=== PATIENT | female | born 1990 | race Caucasian/White ===

== ENCOUNTER 2017-02-08 04:20 | Inpatient (IN) | payer OTHER ==
--- NOTE | 2017-02-08 04:44 | HP ---
Admitting History and Physical - Admission Chief Complaint: labor pains History of Present Illness: 26 y/o with prior cs for failure to progress, comes with labor pains. States contractions began at 2am. Arrives to labor and delivery with fully dilated. AROM clear and exam is 10/100/0 sta Cat one tracing. 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's, CVA, Dementia, Migraine, Multiple Sclerosis, Peripheral Neuropathy, Parkinson's, Seizure, Syncope, TIA, Vertigo, Other Cardiovascular: No: AFIB, Aneurysm, Aortic Insufficiency, Aortic Stenosis, CAD, CHF, Deep Vein Thrombosis, HTN, Hyperlipdemia, VT, Mitral Insufficiency, Mitral Stenosis, Murmur, Pulmonary Hypertension, Other Pulmonary: No: Asthma, Bronchitis, Cancer, COPD, O2 Dependent, Pneumonia, Previously Intubated, Pulmonary Embolus, Pulmonary Fibrosis, Sleep Apnea, Other Gastrointestinal: No: Ascites, Cancer, Constipation, Crohn's Disease, Diverticulitis, Diverticulosis, Esophageal Varices, Gastritis, GERD, GI Bleed, Hemorrhoids, Hiatal Hernia, Inflamatory Bowel Disease, Irritable Bowel Disease, Pancreatitis, Peptic Ulcer Disease, Ulcerative Colitis, Other Hepatobiliary: No: Cirrhosis, Cholelithiasis, Cholecystitis, Choledocholithiasis , Hepatitis A, Hepatitis B, Hepatitis C, Other Renal/: No: Renal Failure, Renal Inusuff, BPH, Cancer, Hematuria, Hemodialysis , Neurogenic Bladder, Renal Calculi, UTI, Other Reproductive: No: Ectopic , Endometriosis, Fibroids, PID, Polycystic Ovary Syndrome, Postmenopausal, Other ...LMP: 05/09/16 Heme/Onc: No: Anemia, B12 Deficiency, Bleeding Disorder, Cancer, Current Chemotherapy, Current Radiation Therapy, Hemochromatosis, Hypercoaguable State, Myeloproliferative Synd, Sickle Cell Disease, Sickle Cell Trait, Thrombocytopenia, Other Infectious Disease: No: AIDS, C-Diff, Herpes Zoster, HIV, MRSA, STD's, Tuberculosis, VREF, Other Psych: No: Addictions, Anxiety, Bipolar, Depression, Panic, Psychosis, Schizophrenia, Other Musculoskeletal: No: Bursitis, Chronic low back pain, Hemiparesis, Hemiplegia, Osteoarthritis, Paraplegia, Other Rheumatology: No: Fibromyalgia, Gout, Lupus, Rheumatoid Arthritis, Sarcoidosis, Vasculitis, Other Endocrine: No: [place]'s Disease, Nacho's Disease, Diabetes Insipidus, Diabetes Mellitus, Hyperparathyroidism, Hyperthyroidism, Hypothyroidism, Osteopenia, SIADH, Other Dermatology: No: Basal Cell, Cellulitis, Eczema, Melanoma, Psoriasis, Squamous Cell, Other - Past Surgical History Past Surgical History: No: None, AAA Repair, AICD, Amputation, Appendectomy, Arthrosocopy, AV Fistula/Graft, Bariatric Surgery, Breast Biopsy, Bypass, CABG, Carotid Endarterectomy, Cataract Removal, Cholecystectomy, Colectomy, Colonoscopy, Colostomy, Craniotomy, , Cystectomy, Hernia Repair, Hysterectomy, Ileal Conduit, Ileosotomy, Joint Replacement, Kidney Transplant, Laminectomy, Liver Transplant, Mastectomy, Nephrectomy, Oopherectomy, Orchiectomy, Permanent Pacemaker, Prostatectomy, Splenectomy, Stent, Thoracotomy , TURP, Tonsillectomy, Tubal Ligation, Upper Endoscopy, Valve Replacement, Vasectomy, Vein Stripping/Ligation - Smoking History Smoking history: Never smoked Have you smoked in the past 12 months: No - Alcohol/Substance Use Hx Alcohol Use: No History of Substance Use: denies: None, Cocaine, Heroin, Marijuana, Prescription , Tranquilizers - Social History Usual Living Arrangement: No: Alone, With Spouse, With Parent, With Significant Other, With Child, Assisted Living, [facility], Other Home Medications - Allergies Allergies/Adverse Reactions: Allergies Allergy/AdvReac Type Severity Reaction Status Date / Time No Known Allergies Allergy Verified 06/30/16 20:06 - Home Medications Home Medications: Ambulatory Orders Vitamins (Sjr) - 1 tab PO DAILY 01/04/15 Clotrimazole [Clotrimazole-7] 45 gm VG HS #1 cream.appl 07/01/16 Review of Systems - Review of Systems Constitutional: reports: No Symptoms Eyes: reports: No Symptoms HENT: reports: No Symptoms Neck: reports: No Symptoms Cardiovascular: reports: No Symptoms Respiratory: reports: No Symptoms Gastrointestinal: reports: No Symptoms Genitourinary: reports: No Symptoms Musculoskeletal: reports: No Symptoms Integumentary: reports: No Symptoms Neurological: reports: No Symptoms Endocrine: reports: No Symptoms Hematology/Lymphatic: reports: No Symptoms Psychiatric: reports: No Symptoms Physical Examination Constitutional: Yes: Well Nourished Eyes: Yes: WNL HENT: Yes: WNL Neck: Yes: WNL Cardiovascular: Yes: WNL Respiratory: Yes: WNL Gastrointestinal: Yes: WNL ...Rectal Exam: Yes: WNL Renal/: Yes: WNL Musculoskeletal: Yes: WNL Extremities: Yes: WNL Integumentary: Yes: WNL Neurological: Yes: WNL ...Motor Strength: WNL Psychiatric: Yes: WNL Assessment/Plan as above admit labs expect LOTUS
[2017-02-08] MEDS ORDERED: DEXTROSE 5%-LACTATED RINGERS 1,000 ML IV SCH (04:45)
--- NOTE | 2017-02-08 04:53 | PN ---
Ante-Partal Exam - Subjective Bleeding: No Headache: No Visual changes: No Right upper quadrant pain: No - Contractions Contractions: Yes Regularity: Regular Intensity: Moderate Monitor Mode: External - Exam during Labor Heart Rate: 150 Variability: Moderate Category: I Monitor Accelerations: Present Monitor Decelerations: None Exam: Vaginal Dilatation (cm): 10 Effacement (%): 100 Amniotic Membrane Status: Ruptured Nitrazine Test: Positive Amniotic Fluid: Clear Presentation: Vertex Station: 0 - Assessment/Plan Assessment/Plan: as above starting to push expect
[2017-02-08 05:00] VITALS: BMI 32.0
[2017-02-08 05:04] LABS: BASOPHIL 0.6 % (0-2.0); EOSINOPHIL 0.6 % (0-4.5); MCHC 32.1 g/dl (32.0-36.0); MEAN PLT VOLUME 9.4 fl (7.5-11.1); NEUTROPHILS 74.1 % (42.8-82.8); PLATELET COUNT 261 K/MM3 (134-434); RDW 16.8 % (11.6-15.6); WHITE BLOOD COUNT 9.6 K/mm3 (4.0-10.0)
[2017-02-08 05:17] LABS: INR 0.92 (0.82-1.09); PROTHROMBIN TIME (PATIENT) 10.1 SEC (9.98-11.88)
[2017-02-08 05:20] LABS: ACTIVATED PTT 26.3 SECONDS (26.9-34.4)
[2017-02-08 05:24] LABS: CALCIUM 8.6 mg/dL (8.5-10.1); CREATININE 0.7 mg/dL (0.55-1.02)
[2017-02-08] MEDS ORDERED: BENZOCAINE 28 GM HEMORRHOIDAL OINTMENT TP PRN (06:02)
[2017-02-08] MEDS ORDERED: BENZOCAINE 20% 57 GM BOTTLE TP PRN (06:02)
[2017-02-08] MEDS ORDERED: WITCH HAZEL 50% (TUCKS) 40 PAD/JAR PAD TP PRN (06:02)
[2017-02-08] MEDS ORDERED: BISACODYL 10 MG SUPP.RECT RC PRN (06:02)
[2017-02-08] MEDS ORDERED: METHYLERGONOVINE MALEATE 0.2 MG/1 ML AMP IM PRN (06:02)
[2017-02-08] MEDS: IBUPROFEN 600 MG TABLET (FP) PO PRN ×5 (06:05→23:12)
[2017-02-08] MEDS: ACETAMINOPHEN 325 MG TABLET (FP) PO PRN ×5 (06:05→23:13)
[2017-02-08] MEDS ORDERED: OXYTOCIN 20 UNITS in 0.9% NS 1,000 ML IV SCH (06:15)
[2017-02-08] MEDS ORDERED: D5W-LR W/ 20 UNITS OXYTOCIN 1,000 ML IV SCH (06:15)
[2017-02-08] MEDS ORDERED: oxyCODONE HCL 5 MG TABLET PO PRN (19:44)
[2017-02-09 07:40] LABS: BASOPHIL 0.4 % (0-2.0); EOSINOPHIL 1.3 % (0-4.5); MCH 23.9 pg (25.7-33.7); MCHC 31.9 g/dl (32.0-36.0); PLATELET COUNT 163 K/MM3 (134-434); RDW 16.7 % (11.6-15.6); WHITE BLOOD COUNT 9.6 K/mm3 (4.0-10.0)
[2017-02-09] MEDS: IBUPROFEN 600 MG TABLET (FP) PO PRN ×3 (08:24→19:13)
[2017-02-09] MEDS: ACETAMINOPHEN 325 MG TABLET (FP) PO PRN ×3 (08:25→19:13)
--- NOTE | 2017-02-09 08:38 | PN ---
Progress Note (short form) - Note Progress Note: ppd 1 doing well, no c/o voids ok CBC, BMP 02/09/17 06:35 02/08/17 04:35 Last Vital Signs Temp Pulse Resp BP Pulse Ox 97.7 F 71 20 116/72 98 02/09/17 05:34 02/09/17 05:34 02/09/17 05:34 02/09/17 05:34 02/08/17 21:29 uterus firm, non tender,no cva lochia mild no claf tenderness plan ambulate, observe
[2017-02-09] MEDS ORDERED: INFLUENZA VACCINE 45 MCG/0.5 ML (MDV 16-17) IM ONE (10:00)
[2017-02-09] MEDS ORDERED: DIPHTH,PERTUSS(ACELL),TET 0.5 ML DISP.SYRIN IM ONE (10:00)
[2017-02-09] MEDS ORDERED: INFLUENZA VACCINE 60 MCG/0.5 ML (P/F DISP.SYRIN 16-17) IM ONE (10:00)
[2017-02-09] MEDS ORDERED: SENNOSIDES/DOCUSATE COMBO (SENNA PLUS) TABLET (UD) PO PRN (22:00)
[2017-02-10] MEDS: IBUPROFEN 600 MG TABLET (FP) PO PRN ×2 (03:36→10:12)
[2017-02-10] MEDS: ACETAMINOPHEN 325 MG TABLET (FP) PO PRN ×2 (03:37→10:12)
[2017-02-10 07:55] VITALS: BP 121/61; PULSE 69; TEMP 97.9
--- NOTE | 2017-02-10 12:46 | PN ---
Post Progress Note Post Day: 2 Type of Delivery: Vital Signs: Vital Signs Temperature 97.9 F 02/10/17 07:53 Pulse Rate 69 02/10/17 07:53 Respiratory Rate 20 02/10/17 07:53 Blood Pressure 121/61 02/10/17 07:53 O2 Sat by Pulse Oximetry (%) 98 02/08/17 21:29 Breast Exam: Yes: Soft Uterus: Yes: Fundus Firm Abdomen/GI: Yes: Abdomen soft Lochia: Yes: Rubra Lochia, amount: Small Extremities: Yes: Calves non-tender Perineum: Yes: Intact Activity: Ambulating - Labs Labs: CBC WBC 9.6 K/mm3 (4.0-10.0) 02/09/17 06:35 RBC 4.12 M/mm3 (3.60-5.2) 02/09/17 06:35 Hgb 9.9 GM/dL (10.7-15.3) L D 02/09/17 06:35 Hct 30.9 % (32.4-45.2) L D 02/09/17 06:35 MCV 75.0 fl (80-96) L 02/09/17 06:35 MCHC 31.9 g/dl (32.0-36.0) L 02/09/17 06:35 RDW 16.7 % (11.6-15.6) H 02/09/17 06:35 Plt Count 163 K/MM3 (134-434) D 02/09/17 06:35 MPV 9.0 fl (7.5-11.1) 02/09/17 06:35 Neutrophils % 69.0 % (42.8-82.8) 02/09/17 06:35 Lymphocytes % 21.0 % (8-40) 02/09/17 06:35 Monocytes % 8.3 % (3.8-10.2) 02/09/17 06:35 Eosinophils % 1.3 % (0-4.5) D 02/09/17 06:35 Basophils % 0.4 % (0-2.0) 02/09/17 06:35 Assessment/Plan dc home
--- NOTE | 2017-04-25 09:09 | DS ---
DATE OF ADMISSION: 02/08/2017 DATE OF DISCHARGE: 02/10/2017 The patient was seen throughout her hospital course and noted to be doing well, no issues or concerns. The patient was subsequently discharged home to be followed up in the office. EUGENE ROGERS M.D. SOWMYA/[id number]
== END 2017-02-10 13:30 | disposition home or self-care (01) | DRG 560 ==
LOC: JLDR 04:20 → J3W 07:59
PROVIDERS: ADMIT Obstetrics & Gynecology; ATTEND Obstetrics & Gynecology
PROC: 10E0XZZ Delivery of Products of Conception, External Approach (ICD-10-PCS; principal; 2017-02-08)
PROC: 0HQ9XZZ Repair Perineum Skin, External Approach (ICD-10-PCS; 2017-02-08)
DX: O34.211 Maternal care for low transverse scar from previous cesarean delivery (principal); Z3A.38 38 weeks gestation of pregnancy; Z37.0 Single live birth
CPT/HCPCS: 36415; 59409; 80048; 85025; 85610; 85730; 86593; 86850; 86900; 86901; 90686; 90715; G0008; Q2037

== ENCOUNTER 2019-08-03 15:50 | Emergency (ER) | payer OTHER | END 2019-08-03 19:00 | disposition home or self-care (01) | LOC: JER 15:50 ==

== ENCOUNTER 2019-11-17 19:27 | Emergency (ER) | payer OTHER ==
[2019-11-17] MEDS ORDERED: ACETAMINOPHEN 500 MG TABLET (FP) PO ONE (20:01)
--- NOTE | 2019-11-17 20:01 | PDOC ---
Rapid Medical Evaluation Chief Complaint: Pain Time Seen by Provider: 11/17/19 19:58 Medical Evaluation: Allergies Allergy/AdvReac Type Severity Reaction Status Date / Time No Known Allergies Allergy Verified 06/30/16 20:06 11/17/19 19:58 CC: suprapubic pain with vaginal discharge PE: suprapubic tenderness. obgyn hospitalist physician deferred Orders: urine Patient will proceed to ER for further evaluation. Discharge Disposition - Diagnosis Pelvic pain - Referrals Referrals: Jaylin Loredo MD [Primary Care Provider] - - Patient Instructions - Post Discharge Activity
[2019-11-17 20:02] VITALS: TEMP 98.2; BMI 23.8
--- NOTE | 2019-11-17 21:10 | PDOC ---
*Physical Exam - Vital Signs Last Vital Signs Temp Pulse Resp BP Pulse Ox 98.2 F 74 17 126/81 100 11/17/19 19:59 11/17/19 19:59 11/17/19 19:59 11/17/19 19:59 11/17/19 19:59 Medical Decision Making - Medical Decision Making 11/17/19 21:09 Patient seen by the advanced practice provider under my direct supervision. Ancillary testing reviewed as necessary. I agree with plan as outlined by the advanced practice provider. Discharge - Discharge Information Problems reviewed: Yes Clinical Impression/Diagnosis: Vaginal discharge Condition: Good Disposition: HOME - Follow up/Referral Referrals: Jaylin Loredo MD [Primary Care Provider] - - Patient Discharge Instructions Patient Printed Discharge Instructions: DI for Vaginal Discharge Additional Instructions: It is important that you follow-up with the pharmacy retail support specialist. your urine test is negative. Your symptoms are likely because of your control pills. Please follow-up with the pharmacy retail support specialist for any further instruction. Return to the emergency room for any worsening symptoms. Return to the ER if you are soaking 2 pads per hour, severe abdominal pain, or worsening symptoms. - Post Discharge Activity Work/Back to School Note: Back to Work
--- NOTE | 2019-11-17 21:38 | PDOC ---
History of Present Illness - General Chief Complaint: Pain Stated Complaint: ABD PAIN Time Seen by Provider: 11/17/19 19:58 History Source: Patient Exam Limitations: Language Barrier (Appian broadcast designer used for this encounter) - History of Present Illness Initial Comments: 11/17/19 21:04 29 year old female c/o dysparenia, vaginal discharge, intermittent vaginal bleeding on and off for 2 months. patient reports that she started taking OCP 3 months ago. patient also reports pelvic pain, denies new partners or exposure to STI. denies NVD, abdominal pain, urinary symptoms, flank pain, Past History - Past Medical History Allergies/Adverse Reactions: Allergies Allergy/AdvReac Type Severity Reaction Status Date / Time No Known Allergies Allergy Verified 11/17/19 20:02 Home Medications: Ambulatory Orders NK [No Known Home Medication] 08/03/19 Asthma: No Cancer: No Cardiac Disorders: No COPD: No Diabetes: No HTN: No Seizures: No Thyroid Disease: No - Surgical History Abdominal Surgery: (d&c) - Reproductive History (#): 1 Para: 0 Therapeutic (s) & number: No Spontaneous : 0 - Immunization History Immunization Up to Date: Yes - Psycho Social/Smoking Cessation Hx Smoking History: Never smoked Have you smoked in the past 12 months: No Information on smoking cessation initiated: No Hx Alcohol Use: No Drug/Substance Use Hx: No Substance Use Type: None Hx Substance Use Treatment: No Review of Systems - Review of Systems Able to Perform ROS?: Yes Is the patient limited [place] proficient: No Constitutional: No: Symptoms Reported, See HPI, Chills, Diaphoresis, Fever, Loss of Appetite, Malaise, Night Sweats, Weakness, Weight Stable, Unintentional Wgt. Loss, Unexplained wgt Loss, Other : Yes: Other (vaginal bleeding, pelvic pain) *Physical Exam - Vital Signs Last Vital Signs Temp Pulse Resp BP Pulse Ox 98.2 F 74 17 126/81 100 11/17/19 19:59 11/17/19 19:59 11/17/19 19:59 11/17/19 19:59 11/17/19 19:59 - Physical Exam General Appearance: Yes: Appropriately Dressed Respiratory/Chest: positive: Lungs Clear, Normal Breath Sounds Cardiovascular: positive: Regular Rhythm, Regular Rate Female Pelvic Exam: positive: normal external exam, cervical os closed, normal adnexa, other (brown vaginal discharge noted. no adenexal tenderness). negative : adnexal tenderness Integumentary: positive: Normal Color, Dry, Warm Neurologic: positive: Fully Oriented, Alert ED Progress Note - Progress Note Progress Note: 11/18/19 02:54 A: vaginal discharge P: ua urine GC: pending Discharge - Discharge Information Problems reviewed: Yes Clinical Impression/Diagnosis: Vaginal discharge Condition: Good Disposition: HOME - Follow up/Referral Referrals: Jaylin Loredo MD [Primary Care Provider] - - Patient Discharge Instructions Patient Printed Discharge Instructions: DI for Vaginal Discharge Additional Instructions: It is important that you follow-up with the rn pediatric. your urine test is negative. Your symptoms are likely because of your control pills. Please follow-up with the rn pediatric for any further instruction. Return to the emergency room for any worsening symptoms. Return to the ER if you are soaking 2 pads per hour, severe abdominal pain, or worsening symptoms. - Post Discharge Activity Work/Back to School Note: Back to Work
[2019-11-17 22:26] LABS: URINE APPEARANCE CLEAR; URINE BILIRUBIN NEGATIVE (NEGATIVE); URINE COLOR YELLOW; URINE GLUCOSE (UA) NEGATIVE (NEGATIVE); URINE KETONE NEGATIVE (NEGATIVE); URINE LEUK ESTERASE NEGATIVE (NEGATIVE); URINE NITRITE NEGATIVE (NEGATIVE); URINE PROTEIN NEGATIVE (NEGATIVE); URINE UROBILINOGEN 0.2 mg/dL (0.2-1.0)
[2019-11-17] MEDS ORDERED: ACETAMINOPHEN 325 MG TABLET (FP) ONE (22:39)
[2019-11-17 22:53] VITALS: BP 126/78; PULSE 76
== END 2019-11-17 22:54 | disposition home or self-care (01) ==
LOC: JER 19:27
DX: N89.8 Other specified noninflammatory disorders of vagina (principal)
CPT/HCPCS: 36415; 81003; 84703; 87086; 87491; 87591; 99283-25

== ENCOUNTER 2021-02-27 08:50 | Emergency (ER) | payer OTHER ==
[2021-02-27 09:11] VITALS: BP 116/79; PULSE 70; TEMP 98.8; BMI 23.9
[2021-02-27] MEDS ORDERED: DEXAMETHASONE SOD PHOSPHATE 10 MG/1 ML VIAL IM ONE (09:31)
[2021-02-27] MEDS ORDERED: DEXAMETHASONE SOD PHOSPHATE 10 MG/1 ML VIAL ONE (09:33)
== END 2021-02-27 09:40 | disposition home or self-care (01) ==
LOC: JERFT 08:50
PROC: 3E0233Z Introduction of Anti-inflammatory into Muscle, Percutaneous Approach (ICD-10-PCS; principal; 2021-02-27)
DX: L50.9 Urticaria, unspecified (principal)
CPT/HCPCS: 99284-25; J1100